=== PATIENT | male | born 1955 | race Caucasian/White ===

== ENCOUNTER 2019-11-05 11:03 | Day surgery (SDC) | payer OTHER, SELFPAY ==
[2019-11-04 14:44] VITALS: BMI 34.4
[2019-11-05] VITALS (8 sets, daily range): BP systolic 115–135; BP diastolic 69–89; PULSE 62–72; RESP 18–23; TEMP 36.2–36.6; O2SAT 94–100
--- NOTE | 2019-11-05 11:37 | ECG_ITS ---
Measurements Intervals [place] Rate: 49 P: 38 ME: 177 QRS: -17 QRSD: 95 T: 3 QT: 462 QTc: 421 SINUS BRADYCARDIA No previous ECG available for comparison Electronically Signed On 11-05-2019 19:58:52 CATERPILLAR MECHANIC by Blas Lopez M.D. [id number]
[2019-11-05 11:50] LABS: Glucose Point of Care 127 mg/dL (70-110)
--- NOTE | 2019-11-05 12:03 | ANES.PREANE2 ---
Pre-Anesthetic Assessment Pre-Anesthetic Assessment: Height/Weight: Height 1.83 m Weight 115.212 kg Temp Pulse Resp BP Pulse Ox 97.3 F L 64 18 115/72 94 11/05/19 11:29 11/05/19 11:29 11/05/19 11:29 11/05/19 11:29 11/05/19 11:29 Preop Diagnosis: Left shoulder impingement with DJD AC joint Proposed Procedure: Operation Date: 11/05/19 13:10 Proposed Procedures p Distal Clavicle Resection 30741 M19.012 M75.42(Left) - Florecita Cruz MD s Poss Rotator Cuff Repair(Left) - Florecita Cruz MD Was Beta Niranjan taken within 24 hours: Yes Last intake: Intake Last Liquid Date 11/04/19 Last Liquid Time 21:30 Last Solid Date 11/04/19 Last Solid Time 20:30 Last Intake: 08:00 Social: Social History: Tobacco Packs per day: 1 Pack years: 22 Comment: quit Exam: Pre-Anes Outpt Exam: alert, oriented x 3, clear to auscultation bilaterally and regular rate & rhythm Airway: Submandibular: WNL Cervical ROM: WNL MP: 1 CV/HEM: CV/HEM: Angina (Stable) and CAD Comments: ' CABG Haseeb stress test 06/13 small SC Haseeb last visit 08/13 started isosorbide GI: GI: GERD Metabolic: Metabolic: DM Comments: rx'd x 2y, normally 145-155 Musc/skel: Musc/skel: Lower Back Pain Comments: left radiculopathy Neuropsych: Neuropsych: MELARA Anesthetic Plan: ASA status: 3 Data Anesthesia Other Labs: Laboratory Results - last 48 hr 11/05/19 11:47 POC Glucose 127 Cardiac Studies: No Data to Display
[2019-11-05] MEDS: sodium chloride 0.9% 1,000 ML 30 ML IV (12:04)
[2019-11-05] MEDS: midazolam 1 mg/mL INJ 5 ML 5 MG IVP (12:15)
[2019-11-05] MEDS: fentaNYL 50 mcg/mL INJ 2mL 100 MCG IVP (12:25)
--- NOTE | 2019-11-05 12:27 | ANES.PROC ---
Anesthesia Procedures Procedure/Date: 11/05/19 Left innerscalene block Procedure Narrative: R&B's of left innerscalene block disc'd for postop pain relief following left shoulder sx. Verbal and written consent obtained. Versed 2+1+.5mg, Fentanyl 50ug. US utilized to identify left innerscalene groove, NATALIO. Nerve stimulator at 0..8mAMPS. 40cc Ropvicaine 0.5% + Lido 2% withepi 3:1 mixture in 5cc increments without problems/complications. Nerve Block ^: Nerve Block 1: Main Anesthesia: general anesthesia Time Out Performed: Yes Consent: requested by attending/covering physician, from patient, risks and benefits reviewed and patient agrees to proceed Nerve block location: interscalene Anesthesia monitors applied: pulse oximetry and oxygen Anesthetic Used: lidocaine 2% and ropivicaine 0.5% Amount of anesthesia used (mL): 40 Ultrasound used to: visualize and ID interscalene groove Nerve Stimulator Used?: Yes Interscalene/Femoral BLK: 2 stimuplex 22 g needle used for position and inplane approach Injection: neg aspiration of heme Patient Tolerated Procedure: well and no complications Complications: none
--- NOTE | 2019-11-05 12:58 | P.HPUD_ITS ---
H&P update H&P Update: DATE OF SURGERY/PROCEDURE: 11/05/19 DATE H&P PERFORMED: 12/12 H&P UPDATE INFORMATION: No changes to prior documentation and H[place] is [place] [facility] [place] date indicated PREOP DIAGNOSIS: Left shoulder impingement with DJD AC joint PRIMARY INDICATION FOR PROCEDURE: See diagnosis PLANNED PROCEDURE: Operation Date: 11/05/19 13:10 Proposed Procedures p Distal Clavicle Resection 79160 M19.012 M75.42(Left) - Florecita Cruz MD s Poss Rotator Cuff Repair(Left) - Florecita Cruz MD Full H&P Medications/Allergies: Current Medications: Current Medications Generic Name Dose Route Start Last Admin Trade Name Freq PRN Reason Stop Dose Admin Sodium Chloride 1,000 mls @ 30 ml s/hr 11/05/19 11:15 11/05/19 12:04 Sodium Chloride 0.9% IV 11/06/19 11:14 30 mls/hr .Q24H ONIEL Administration
[2019-11-05 13:51] LABS: Anion Gap 17.5 (5-19); Blood Urea Nitrogen 13 mg/dL (8-23); Carbon Dioxide 26 mmol/L (22-29); Chloride 103 mmol/L (98-107); Glomerular Filtration Rate 97.6 mL/min (90-130); Glucose 142 mg/dL (65-115); Osmolality Calculated 293 mOsm/kg (285-295); Potassium 4.5 mmol/L (3.5-5.1); Sodium 142 mmol/L (136-145)
[2019-11-05] MEDS: ceFAZolin 1,000 mg SDV 1000 MG IRRIGATION (14:18)
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
--- NOTE | 2019-11-05 15:40 | P.OP_ITS ---
Operative Report Date of procedure: November 05, 2019 Pre-op Diagnosis: Left shoulder impingement with DJD AC joint with possible rotator cuff tear Post-op diagnosis: same (Without rotator cuff tear) Procedure Done: Open acromioplasty and distal clavicle resection left shoulder Specimens removed/disposition: Bone, disposed of Pathology: none sent Surgeon: Florecita Cruz Linotypist: [facility] OR technicians Anesthesia: General (Intubated with interscalene block supplemental) Estimated blood loss (mL): 50 IV fluids (mL): 1,000 Urine output: 0 mL, no Bonilla Complications: None Findings: Severe impingement and degenerative osteoarthritis of the acromioclavicular joint with no evidence of rotator cuff tear, but with quite thickened bursa. Condition: stable Disposition: same day Brief History: This 64-year-old gentleman presented with complaints of left shoulder pain. MRI findings were consistent with impingement as well as acromioclavicular joint degenerative osteoarthritis. There was also a question of a partial rotator cuff tear in the subscapularis tendon. The patient was nonresponsive to conservative measures, and he wished to proceed with surgical intervention. Risks and complications were discussed with him. The patient was consented for surgery and consents were signed preoperatively. Procedure: The patient was brought to the operating theater and underwent general intubated anesthesia with supplemental interscalene block. The patient was placed in a beachchair position and subsequently the left upper extremity was prepped and draped in the usual fashion utilizing DuraPrep. The arm was draped free. A surgical pause was performed prior to commencement of the surgical procedure. At the time of the surgical pause, we confirmed the site and side of surgery as well as administration of appropriate preoperative antibiotics Ancef 2 g. MRI was also reviewed at that time. Following the surgical pause, an incision was made at approximately the level of the acromioclavicular joint extending across the anterolateral corner of the acromion and distally as necessary. Care was taken to avoid injury to the axillary nerve by limiting the distal extent of the incision. Dissection continued through skin and soft tissues using a scalpel. Hemostasis was obtained using electrocautery. Soft tissues were elevated off the acromion. An acromioplasty was then accomplished using a combination of a saw and a power rasp. With this, we were able to remove compression caused by the acromion. The rotator cuff was then evaluated to look for tears. In particular, the subscapularis and supraspinatus were evaluated. MRI was consistent with possible partial subscapularis tear, but none was seen. There was significant thickening of the bursa and a bursectomy was accomplished. After bursectomy, the shoulder was placed through further range of motion to assure there was no evidence of rotator cuff tear. The acromioclavicular joint was exposed. A saw was then used to resect the distal clavicle without difficulty. The undersurface of the clavicle was palpated and was slightly further debrided. A power rasp was used to further smooth the area. When this was felt to be adequately resected, the wound was irrigated. Attention was then directed to closure. The wound was irrigated and closure was accomplished with 0 Vicryl in the capsular tissues overlying the acromioclavicular joint area as well as over the acromion and down into the deltoid muscle. 3-0 Monocryl was used to close the subcutaneous tissues followed by 4-0 Monocryl subcuticular closure. This was followed by Exofin, Steri-Strips, Telfa, and Tegaderm. The patient was placed in a sling and was returned to the recovery room in satisfactory condition. The patient will be discharged to home to follow-up with me in the office. There were no complications and no specimens.
--- NOTE | 2019-11-05 15:41 | SUR.PHASEI ---
1537 PATIENT TO OPS. A/OX3. RR EVEN AND UNLABORED. TOLERATING ICE CHIPS. DRESSING INTACT TO LEFT SHOULDER, WITH SLING. RADIAL PULSE PRESENT, CAP REFILL LESS THAN 3 SECONDS. PATIENT DENIES PAIN.
== END 2019-11-05 16:15 | disposition home or self-care (01) ==
PROVIDERS: Anesthesiology; Family Provider Family Medicine; PCP Family Medicine; Visit Provider Specialist
PROC: (CPT 23120; principal; 2019-11-05 13:10)
DX: M75.42 Impingement syndrome of left shoulder (principal); M19.012 Primary osteoarthritis, left shoulder; Z79.82 Long term (current) use of aspirin; Z79.84 Long term (current) use of oral hypoglycemic drugs; F17.210 Nicotine dependence, cigarettes, uncomplicated; Z95.1 Presence of aortocoronary bypass graft; I25.10 Atherosclerotic heart disease of native coronary artery without angina pectoris; I25.2 Old myocardial infarction; K21.9 Gastro-esophageal reflux disease without esophagitis
CPT/HCPCS: 23125; 23130; 12345; 36415; 36416; 80048; 82962; 93005; 96374; 96375; J0690; J2001; J2250; J2704; J2795; J3010; J3490; J7030

== ENCOUNTER → 2019-11-20 11:36 | Outpatient (BNVA) | payer OTHER, SELFPAY | PROVIDERS: Family Provider Family Medicine; PCP Family Medicine; Visit Provider Specialist | DX: Z98.890 Other specified postprocedural states (principal) | CPT/HCPCS: 73030 ==

== ENCOUNTER 2020-01-21 08:15 | Outpatient (CLI) | payer OTHER, SELFPAY ==
--- NOTE | 2020-01-21 08:33 | XR_ITS ---
WS: [id number] SHOULDER RIGHT TECHNIQUE: 3 views of the right shoulder CLINICAL INFORMATION: PAIN IN RIGHT SHOULDER COMPARISON: None. FINDINGS: Normal acromioclavicular joint. Normal glenohumeral joint. Acromion is normal in appearance. Normal g lenoid. No evidence of acute fracture dislocation. XR/XR shoulder RT min 2V* [id number] IMPRESSION: Normal right shoulder.
== END 2020-01-21 08:16 | disposition home or self-care (01) ==
LOC: RADWPI 08:18
PROVIDERS: Family Provider Family Medicine; PCP Nurse Practitioner Family; Visit Provider Nurse Practitioner Family
DX: M25.511 Pain in right shoulder (principal)
CPT/HCPCS: 73030

== ENCOUNTER 2020-02-03 20:00 | Outpatient (CLI) | payer OTHER, SELFPAY | END 2020-02-03 20:01 | disposition home or self-care (01) | LOC: SLEEP 02-04 12:06 | PROVIDERS: Family Provider Family Medicine; PCP Nurse Practitioner Family; Visit Provider Nurse Practitioner Family | DX: G47.33 Obstructive sleep apnea (adult) (pediatric) (principal) | CPT/HCPCS: 95810; 95811 ==

== ENCOUNTER → 2022-06-02 08:39 | Outpatient (BNVA) | payer MEDICARE, SELFPAY | PROVIDERS: Family Provider Family Medicine; PCP Family Medicine; Visit Provider Family Medicine | DX: E11.69 Type 2 diabetes mellitus with other specified complication (principal); E66.9 Obesity, unspecified; Z12.5 Encounter for screening for malignant neoplasm of prostate; Z80.42 Family history of malignant neoplasm of prostate; Z87.891 Personal history of nicotine dependence | CPT/HCPCS: 80053; 80061; 83036; G0103 ==

== ENCOUNTER 2022-09-29 08:25 | Outpatient (CLI) | payer MEDICARE, SELFPAY ==
--- NOTE | 2022-09-29 08:45 | CT_ITS ---
WS: [id number] LDCT LUNG CANCER SCREENING TECHNIQUE: Noncontrast CT of the chest with coronal and sagittal reformatted images. CLINICAL INFORMATION: lung cancer screening COMPARISON: None. DLP: 83.59 mGy.cm DIvol: Mean CTDIvol: 1.60 (mGy) All CT scans at [facility] use at least one of these dose optimization techniques: automat ed exposure control; mA and/or kV adjustment per patient size (includes targeted exams where dose is matched to clinical indication); or iterative reconstruction. FINDINGS: Numerous bilateral round and ovoid solid noncalcified nodules more prominent in the upper l obes and subpleural in location. Additional nodules in the lung bases. The largest nodules measure up to 6 mm in the RIGHT upper lobe. Findings are nonspecific but metastatic disease is not excluded. No mediastinal or hilar lymphadenopathy. Prominent RIGHT axillary lymph node measuring 9.3 mm. A few prominent LEFT axillary lymph nodes measu ring up to 11 mm. Sternotomy. CABG. Normal caliber thoracic aorta. Coronary calcification.Normal GE junction. Adrenal g lands are normal. No mediastinal or hilar lymphadenopathy. Low-attenuation lesion in the hepatic dome likely hepatic cyst measuring 9 mm but too small to definitively characterize. Chronic LEFT rib frac ture with callus formation. CT/CT lung screening 36564 IMPRESSION: Numerous bilateral solid noncalcified pulmonary nodules bilaterally more prominent in the upper lobes. Largest nodules measure up to 6.3 mm in the RIGHT upper lobe along the fissure. Findings are nonspecific but metastatic di sease is not excluded. Recommend further evaluation with contrast-enhanced CT chest abdomen pelvis and correlate with history of malignancy. A few prominent axillary lymph nodes chun suring 9 to 11 mm. Nodules are probably too small for diagnostic evaluation with PET/CT. LUNG-RADS: 4B-Suspicious FOLLOW UP: See Report
== END 2022-09-29 08:26 | disposition home or self-care (01) ==
LOC: RAD 08:28
PROVIDERS: Family Provider Family Medicine; PCP Family Medicine; Visit Provider Family Medicine
DX: Z12.2 Encounter for screening for malignant neoplasm of respiratory organs (principal); Z87.891 Personal history of nicotine dependence
CPT/HCPCS: 71271

== ENCOUNTER → 2022-10-06 10:03 | Outpatient (BNVA) | payer MEDICARE, SELFPAY | PROVIDERS: Family Provider Family Medicine; PCP Family Medicine; Visit Provider Family Medicine | DX: R91.8 Other nonspecific abnormal finding of lung field (principal) | CPT/HCPCS: 80053; 85025 ==

== ENCOUNTER 2022-10-27 13:00 | Inpatient (IN) | payer MEDICARE, SELFPAY ==
[2022-10-27] VITALS (16 sets, daily range): BP systolic 102–157; BP diastolic 60–108; PULSE 66–106; RESP 11–19; TEMP 36.4–36.8; O2SAT 94–99; BMI 33.9
--- NOTE | 2022-10-27 13:16 | ECG_ITS ---
[facility] Test Date: 2022-10-27 Pat Name: Johnny Garcia Department: Room: Gender: Male Golf Sales Manager: : 1955 Requested By: Mateo Lopez Order Number: [id number] Narciso MD: Mali Quintana M.D. Measurements Intervals [place] Rate: 67 P: 30 PA: 169 QRS: -36 QRSD: 105 T: 49 QT: 398 QTc: 423 Interpretive Statements SINUS RHYTHM LEFT AXIS DEVIATION [QRS AXIS < -30] PATTERN CONSISTENT WITH PULMONARY DISEASE Compared to ECG 11/05/2019 11:56:27 Left-axis deviation now present Sinus bradycardia no longer present Electronically Signed On 10-27-2022 21:02:44 STATE FARM AGENT by Mali Quintana M.D. [email or web address] [email or web address].[email or web address]/store/NU/[id number] f
--- NOTE | 2022-10-27 14:12 | XR_ITS ---
WS: [id number] Portable AP upright chest, 10/27/2022 Clinical Data: chest pain Comparison: None. Findings: No nodules, masses or effusions are seen. The heart is normal. The pulmonary vascularity is not increased. No pneumonia or pneumothorax is seen. Midline sternotomy sutures are present. There a re monitor leads on the chest wall. XR/XR chest 1V portable [id number] Impression: Atherosclerosis.
--- NOTE | 2022-10-27 14:14 | ED_ITS ---
HPI - Chest Pain General: Chief Complaint: Chest Pain Stated Complaint: chest Pain, N/V, Time Seen by Provider: 10/27/22 14:12 Source: patient Mode of arrival: ambulatory History of Present Illness: 67-year-old male presents emergency room with complaint of a sensation of bad heartburn in his chest. He vomited once the pain seemed to worsen and radiated to his back no shortness of breath with. His symptoms of all past he is asymptomatic now. Patient has a known history of coronary artery disease and previously had coronary artery bypass graft. He subsequently had stress test that was concerning he states he did an angiogram they told him that it was unremarkable. Presents today after an episode of chest pain he is pain-free at this time. Denies any recent fever sweats or chills. MD complaint: chest pain Pertinent past history: coronary artery disease Onset (ago): hour(s) Timing of current episode: episodic Prior episodes: Yes Onset: during rest Pain location: substernal and left chest Pain radiation: back Severity: moderate Quality: tightness and aching Relieving factors: nothing Exacerbating factors: nothing Associated symptoms: Reports diaphoresis and dyspnea; Deny abdominal pain, fever(s), leg edema, nausea, palpitations, sense of impending doom, syncope or vomiting Treatment prior to arrival: none Review of Systems Const: Reports: diaphoresis; Denies: fever(s) or chills ENMT: Denies: throat pain, ear or mastoid pain, nasal discharge or nasal congestion Card: Reports: chest pain; Denies: palpitations, irregular heart rhythm, edema, swelling of feet/ankles or syncope Resp: Reports: dyspnea GI: Denies: abdominal pain, nausea or vomiting : Denies: flank pain, dysuria, urinary frequency or urinary urgency Skin/Breast: Denies: rash or pruritus PFSH ED PFSH: Medical History Arthritis of left acromioclavicular joint CAD (coronary artery disease) of bypass graft Depression, major, in partial remission History of nonmelanoma skin cancer Hyperlipidemia Hypertension Impingement syndrome of left shoulder region [place] treated with BiPAP Restless leg syndrome Tendonitis of left rotator cuff Thoracic aneurysm without mention of rupture found on echo by java technical manager - dr. cassidy Type 2 diabetes mellitus Surgical History History of shoulder surgery left Hx of coronary artery bypass graft CAABG x 3 2015 Status post repair of hydrocele Family History Mother CAD (coronary artery disease) Diabetes Father Cancer prostate & lung CAD (coronary artery disease) Social History Smoking and tobacco status: former smoker Quit status (tobacco): has quit using tobacco Year quit tobacco: 2015 Former quit date comment: 30 pack year Household members: spouse Marital status: Physical Exam Const: COMMON NORMALS: no acute distress GENERAL APPEARANCE: cooperative and comfortable ORIENTATION/CONSCIOUSNESS: Yes awake, Yes oriented to person, Yes oriented to place and Yes oriented to time HENMT: COMMON NORMALS: normocephalic, atraumatic and hearing grossly normal bilaterally HEAD & SCALP: normocephalic and atraumatic Eye: COMMON NORMALS: Equal, round and reactive pupils present, EOMs intact bilaterally, conjunctivae normal and no scleral icterus CONJUNCTIVA: Yes conjunctivae normal PUPIL: Yes Equal, round and reactive pupils present Neck/C-Spine: COMMON NORMALS: full ROM, no lymphadenopathy, supple and no JVD Lymph: LYMPHATIC: no lymphadenopathy noted and no lymphedema noted Resp: COMMON NORMALS: normal respiratory effort, No retractions, No use of accessory muscles and clear to auscultation bilaterally AUSCULTATION: clear to auscultation bilaterally Cardio: COMMON NORMALS: no JVD, regular rate, regular rhythm and No murmurs present (Cardio) RATE: regular rate RHYTHM: regular rhythm GI: COMMON NORMALS: Soft to palpation and No hepatosplenomegaly present AUSCULTATION: Yes normoactive bowel sounds PALPATION: Yes Soft to palpation, No Tenderness to palpation present (GI), No Guarding due to palpation present (GI) and Yes No hepatosplenomegaly present Extremity: COMMON NORMALS: normal to inspection, capillary refill normal, no clubbing, cyanosis or edema, no calf tenderness and no pedal edema Neuro: SENSORIUM/ORIENTATION: Yes oriented to person, Yes oriented to place and Yes oriented to time Skin: COMMON NORMALS: no rashes or lesions noted GENERAL SKIN EXAM: no rashes or lesions noted Course Vital Signs: Vital signs: Vital Signs Temperature 97.5 F L 10/27/22 13:08 Pulse Rate 68 10/27/22 15:00 Respiratory Rate 13 10/27/22 15:00 Blood Pressure 135/81 10/27/22 15:00 Pulse Oximetry 98 10/27/22 15:00 Oxygen Delivery Me thod 10/27/22 13:08 MDM - Chest Pain Medical Decision Making Chest pain concerning in his description EKG does not show any acute ST changes not currently having any chest pain while we are waiting on his lab work he had a nonsustained run of V. tach about 5 seconds in length. Self terminating and asymptomatic. Discussed Dr. Montgomery on-call for cardiology will admit started on amiodarone in the emergency room 150 loading and then 0.[address]. [address] Akhtar orders written patient will be admitted to the ICU and Dr. Montgomery consulted. We will also get old records from [facility] previously had angiography done. Patient has history of previous thoracic aneurysm he is not having any pain at this time we will do a scan of his chest to evaluate this. Medical Records I reviewed the patient's medical records. Lab Data I reviewed the patient's lab results. 10/27/22 14:30 10/27/22 14:30 Radiology Impressions Chest X-Ray 10/27/22 14:12 Impression: Atherosclerosis. Laboratory Results WBC 6.8 10^3/uL (4.0-10.0) 10/27/22 14:30 RBC 4.58 10^6/uL (4.1-5.3) 10/27/22 14:30 Hgb 13.8 g/dL (11.7-16.6) 10/27/22 14:30 Hct 42.7 % (42.0-52.0) 10/27/22 14:30 MCV 93.2 fl (80-94) 10/27/22 14:30 MCH 30.1 pg (28.0-34.0) 10/27/22 14:30 MCHC 32.3 g/dL (30.0-36.0) 10/27/22 14:30 RDW 13.2 % (12.1-15.1) 10/27/22 14:30 Plt Count 202 10^3/cmm (130-400) 10/27/22 14:30 MPV 9.2 fL (7.4-10.4) 10/27/22 14:30 Neut % (Auto) 78.9 % 10/27/22 14:30 Lymph % (Auto) 13.7 % 10/27/22 14:30 [place] % (Auto) 6.1 % 10/27/22 14:30 Eos % (Auto) 0.6 % 10/27/22 14:30 Baso % (Auto) 0.3 % 10/27/22 14:30 Neut # (Auto) 5.39 10^3/uL (1.8-7.7) 10/27/22 14:30 Lymph # (Auto) 0.9 10^3/uL (0.8-4.8) 10/27/22 14:30 [place] # (Auto) 0.4 10^3/uL (0.2-0.9) 10/27/22 14:30 Eos # (Auto) 0.0 10^3/uL (0.0-0.8) 10/27/22 14:30 Baso # (Auto) 0.0 10^3/uL (0.0-0.1) 10/27/22 14:30 Nucleated RBC % (auto) 0 % 10/27/22 14:30 Nucleated RBCs # 0.0 /100WBC 10/27/22 14:30 Sodium 136 mmol/L (136-145) 10/27/22 14:30 Potassium 4.2 mmol/L (3.5-5.1) 10/27/22 14:30 Chloride 99 mmol/L (98-107) 10/27/22 14:30 Carbon Dioxide 24 mmol/L (22-29) 10/27/22 14:30 Anion Gap 17.2 (5-19) 10/27/22 14:30 BUN 9 mg/dL (8-23) 10/27/22 14:30 Creatinine 0.7 mg/dL (0.7-1.2) 10/27/22 14:30 GFR Calculation 112.8 mL/min (90-130) 10/27/22 14:30 Glucose 120 mg/dL (65-115) H 10/27/22 14:30 POC Glucose 97 mg/dL (70-110) 10/27/22 16:01 Calculated Osmolality 282 mOsm/kg (285-295) L 10/27/22 14:30 Calcium 9.2 mg/dL (8.5-10.5) 10/27/22 14:30 Total Bilirubin 0.8 mg/dL (0.15-1.2) 10/27/22 14:30 AST 28 U/L (0-40) 10/27/22 14:30 ALT 36 U/L (0-41) 10/27/22 14:30 Alkaline Phosphatase 74 U/L (40-130) 10/27/22 14:30 Troponin T Baseline 6 ng/L (0-15) 10/27/22 14:30 Troponin T 120 Minute 6.00 ng/L (0-15) 10/27/22 16:17 Delta Troponin T 0 ABS# (0-10) 10/27/22 16:17 Total Protein 7.3 g/dL (6.6-8.7) 10/27/22 14:30 Albumin 4.8 g/dL (3.5-5.2) 10/27/22 14:30 Globulin 2.5 g/dL (1.3-4.6) 10/27/22 14:30 Discharge Plan Discharge Patient Disposition: Admitted As Inpatient Clinical Impression: Ventricular tachycardia, Thoracic aneurysm without mention of rupture, CAD (coronary artery disease) of bypass graft, Type 2 diabetes mellitus, Chest pain Condition: Stable Coding Level of Care Code ED Brasswind Instrument Repairer for Chg Fwd Exam Comprehensive
[2022-10-27] MEDS: aspirin 81 mg Chew Tablet 324 MG PO (14:21)
--- NOTE | 2022-10-27 14:31 | ECG_ITS ---
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 Measurements Intervals [place] Rate: 69 P: 5 DC: 155 QRS: -31 QRSD: 103 T: -12 QT: 394 QTc: 425 Interpretive Statements SINUS RHYTHM LEFT AXIS DEVIATION [QRS AXIS < -30] MODERATE T-WAVE ABNORMALITY, CONSIDER ANTERIOR ISCHEMIA [-0.1+ mV T-WAVE IN V3/V4] Compared to ECG 10/27/2022 13:13:45 T-wave abnormality now present Possible ischemia now present Electronically Signed On 10-27-2022 21:00:56 FOUNDRY TECHNICIAN by Mali Quintana M.D. [id number]
[2022-10-27 14:39] LABS: Basophils % 0.3 %; Eosinophils % 0.6 %; Hematocrit 42.7 % (42.0-52.0); Hemoglobin 13.8 g/dL (11.7-16.6); Lymphocytes # 0.9 10^3/uL (0.8-4.8); Lymphocytes % 13.7 %; Mean Corpuscular HGB Conc 32.3 g/dL (30.0-36.0); Mean Corpuscular Hemoglobin 30.1 pg (28.0-34.0); Mean Corpuscular Volume 93.2 fl (80-94); Mean Platelet Volume 9.2 fL (7.4-10.4); Monocytes # 0.4 10^3/uL (0.2-0.9); Monocytes % 6.1 %; Neutrophils # 5.39 10^3/uL (1.8-7.7); Neutrophils % 78.9 %; Nucleated Red Blood Cells % 0 %; Platelet Count 202 10^3/cmm (130-400); Red Blood Count 4.58 10^6/uL (4.1-5.3); Red Cell Distribution Width 13.2 % (12.1-15.1); White Blood Count 6.8 10^3/uL (4.0-10.0)
[2022-10-27 14:55] LABS: Troponin(5th) Baseline 6 ng/L (0-15)
[2022-10-27 14:57] LABS: Alanine Aminotransferase 36 U/L (0-41); Albumin Level 4.8 g/dL (3.5-5.2); Alkaline Phosphatase 74 U/L (40-130); Anion Gap 17.2 (5-19); Aspartate Amino Transferase 28 U/L (0-40); Blood Urea Nitrogen 9 mg/dL (8-23); Calcium 9.2 mg/dL (8.5-10.5); Carbon Dioxide 24 mmol/L (22-29); Chloride 99 mmol/L (98-107); Globulin 2.5 g/dL (1.3-4.6); Glomerular Filtration Rate 112.8 mL/min (90-130); Glucose 120 mg/dL (65-115); Osmolality Calculated 282 mOsm/kg (285-295); Potassium 4.2 mmol/L (3.5-5.1); Sodium 136 mmol/L (136-145); Total Bilirubin 0.8 mg/dL (0.15-1.2); Total Protein 7.3 g/dL (6.6-8.7)
[2022-10-27 16:05] LABS: Glucose Point of Care 97 mg/dL (70-110)
--- NOTE | 2022-10-27 16:09 | ECG_ITS ---
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 Measurements Intervals [place] Rate: 71 P: 7 WI: 148 QRS: -27 QRSD: 105 T: 53 QT: 400 QTc: 436 Interpretive Statements SINUS RHYTHM BORDERLINE LEFT AXIS DEVIATION [QRS AXIS < -20] MODERATE T-WAVE ABNORMALITY, CONSIDER ANTERIOR ISCHEMIA [-0.1+ mV T-WAVE IN V3/V4] Compared to ECG 10/27/2022 14:31:17 No significant changes Electronically Signed On 10-27-2022 21:07:39 SMOKE JUMPER SUPERVISOR by Mali Quintana M.D. [email or web address]/store/OM/[id number]
--- NOTE | 2022-10-27 16:23 | PC.NURSE ---
DR. ACOSTA GAVE VERBAL ORDER FOR 150MG LOADING DOSE OF AMIODARONE OVER 10MINUTES BY IV. VERBAL ORDER READ REPEATED BACK AND VERIFIED.
--- NOTE | 2022-10-27 16:27 | PC.NURSE ---
AT 1554 PT HAD WHAT APPEARED TO BE A 8 SECOND RUN OF VTACH. UPON ARRIVAL TO ROOM PT IS DENIES EXPERIENCING SYMPTOMS. SKIN WARM AND DRY.
[2022-10-27 17:03] LABS: Troponin 5 2HR Delta 0 ABS# (0-10)
--- NOTE | 2022-10-27 17:15 | CTR_ITS ---
PROCEDURE INFORMATION: Exam: CTA Chest With Contrast Exam date and time: 10/27/2022 8:23 PM Age: 67 years old Clinical indication: Left-sided; Prior surgery; Surgery type: Cabg; Patient HX: C/O left sided chest pain with n/v. History of thoracic aneurysm; Additional info: Cet pain - HX thoracic anuerysm TECHNIQUE: Imaging protocol: Computed tomographic angiography of the chest with contrast. 3D rendering (Not supervised by radiologist): MIP and/or 3D reconstructed images were created by the technologist. Radiation optimization: All CT scans at this facility use at least one of these dose optimization techniques: automated exposure control; mA and/or kV adjustment per patient size (includes targeted exams where dose is matched to clinical indication); or iterative reconstruction. Contrast material: OMNI 350; Contrast volume: 95 ml; Contrast route: INTRAVENOUS (IV); Other protocol: This patient has received [address] and 0 known cardiac nuclear medicine studies in the 12 months prior to the current study. COMPARISON: CT lung screening [id number] 09/29/2022 8:38 AM RADIATION DOSE METRICS: Total DLP (mGy-cm): 1049.34 FINDINGS: Pulmonary arteries: Normal. No pulmonary emboli. Aorta: Unremarkable. No aortic aneurysm. No aortic dissection. Lungs: Multiple unchanged subcentimeter nodules are again seen scattered throughout both lungs, the largest measuring 6 mm in the right upper lobe. No new nodule seen. No consolidation. Pleural spaces: Unremarkable. No pneumothorax. No pleural effusion. Heart: Normal heart size. Coronary atherosclerotic calcifications seen. No pericardial effusion. Lymph nodes: Unremarkable. No enlarged lymph nodes. Liver: The liver is diffusely decreased in density, compatible with hepatic steatosis. There are 2 unchanged subcentimeter foci of decreased attenuation in the liver, which are too small to characterize. Bones/joints: Median sternotomy changes seen. Degenerative changes of the spine seen. Old healed fracture deformities noted in the left ribcage. Soft tissues: Unremarkable. CT/CT angio chest [id number] IMPRESSION: 1. No pulmonary embolus or other acute pathology in the chest. 2. Unchanged multiple bilateral pulmonary nodules, concerning for metastatic disease. 3. Incompletely characterize subcentimeter hepatic lesions. Further evaluation with contrast enhanced abdomen MRI in a non emergent basis should be considered.
--- NOTE | 2022-10-27 17:28 | USCV_ITS ---
ArchanaJohnny barger Age: 67 Gender: M : 1955 Exam Date: 10/27/2022 17:44 Ordering Phys: Brittny Akhtar MD Technologist: Mir Haynes [place] [facility] [place]: hx of cabg chest pain BP: 131 / 83 HR: 67 Rhythm: Other Technical Quality: Adequate MEASUREMENTS (Male / Female) Normal Values 2D ECHO LV Diastolic Diameter PLAX 5.6 cm 4.2 - 5.9 / 3.9 - 5.3 cm LV Systolic Diameter PLAX 3.5 cm IVS Diastolic Thickness 1.3 cm 0.6 - 1.0 / 0.6 - 0.9 cm IVS Systolic Thickness 1.5 cm LVPW Diastolic Thickness 1.5 cm 0.6 - 1.0 / 0.6 - 0.9 cm LVPW Systolic Thickness 1.4 cm LVOT Diameter 2.1 cm LV Ejection Fraction 2D Teich 67.1 % LV Ejection Fraction MOD 2C 65.8 % LV Ejection Fraction 2C AL 67.5 % LA Diameter 4.2 cm IVC Diameter 2.2 cm M-MODE Aortic Annulus Diameter 4.1 cm LA Ao Ratio MM 1.1 MV E Point Septal Separation 0.6 cm DOPPLER AV Peak Velocity 182.0 cm/s LVOT Peak Velocity 78.0 cm/s AV Area Cont Eq vti 1.6 cm squared AV Area Cont Eq pk 1.5 cm squared MV Area PHT 5.0 cm squared Mitral E to A Ratio 0.9 MV E' Velocity 42.5 cm/s Mitral E to MV E' Ratio 8.2 Mitral E to LV E' Lateral Ratio 6.9 Mitral E to LV E' Septal Ratio 10.0 TR Peak Velocity 354.7 cm/s TR Peak Gradient 50.3 mmHg TV Peak E Velocity 141.0 cm/s Right Atrial Pressure 3.0 mmHg Pulmonary Artery Systolic Pressu 53.3 mmHg FINDINGS Left Ventricle Left ventricle is mildly dilated. LV systolic function is borderline normal with EF 50-55%. No regional wall motion abnormalities are seen. Grade 1 diastolic dysfunction Right Ventricle Normal in size and function Right Atrium Normal in size Left Atrium Normal in size Mitral Valve Structurally normal mitral valve. Trace mitral regurgitation. Aortic Valve Aortic valve is thickened and calcified. No significant stenosis or regurgitation is seen. Tricuspid Valve Trace tricuspid regurgitation. Insufficient TR jet to calculate RVSP. Pulmonic Valve Not well visualized Pericardium Grossly normal Aorta Normal in size IVC Appears to be normal CONCLUSIONS Left ventricle is mildly dilated. LV systolic function is borderline normal with a EF of 50 to 55% Grade 1 diastolic dysfunction Trace mitral regurgitation Aortic valve is thickened and calcified Trace tricuspid regurgitation Compared to prior echocardiogram from 2018, no significant changes are seen Gabriel Mlilard MD (Electronically Signed) Final Date: 28 October 2022 12:15 S
--- NOTE | 2022-10-27 18:07 | P.CONIM_ITS ---
Providers/Reason For Consult Consulting Physician/Specialty*: Gabriel Millard MD/ Cardiology Reason for Consult*: Chest pain/ Non sustained ventricular tachcardia Requesting Physician: Dr Desai Attending Physician: Brittny Akhtar MD Primary Care Provider: Danni Gifford MD History of Present Illness History of Present Illness Johnny Garcia is a 67 year old male with past medical history of hypertension, coronary artery disease with prior CABG, who presented to hospital with substernal burning chest discomfort. He had radiation to the back. He also had nausea and had a vomitting episode. Discomfort was severe. In the emergency room he had episodes of nonsustained ventricular tachycardia. He was put on amiodarone drip. His troponins have not trended up. EKG demonstrated dynamic T wave changes in anterior leads concerning for ischemia. Review of Systems Const: Denies: fever(s) Eyes: Denies: change in vision ENMT: Denies: throat pain Card: Reports: chest pain Resp: Denies: dyspnea GI: Reports: nausea : Denies: flank pain Musc: Denies: neck pain Skin/Breast: Denies: rash Neuro: Denies: headache(s) Psych: Reports: anxiety Endo: Denies: polyuria Dago/Lymph: Denies: easy bruising All/Imm: Denies: urticaria Medications/Allergies Home Medications Medication Instructions Recorded Confirmed Last Taken Type aspirin 81 mg tablet,delayed 81 mg PO DAILY 10/28/19 10/27/22 10/26/22 History release (Adult Low Dose Aspirin) nitroglycerin 0.4 mg sublingual 0.4 mg sublingual Q5M PRN Chest 10/28/19 10/27/22 Unknown History tablet Pain omega-3 fatty acids 1,000 mg 1,000 mg PO DAILY 10/28/19 10/27/22 10/26/22 History capsule (Fish Oil Concentrate) oxygen-air delivery systems ##1 10/28/19 10/27/22 Unknown History atorvastatin 80 mg tablet 80 mg PO DAILY 06/02/22 10/27/22 10/26/22 History isosorbide mononitrate 120 mg 120 mg PO BID 06/02/22 10/27/22 10/27/22 History tablet,extended release 24 hr lisinopril 2.5 mg tablet 10 mg PO DAILY 06/02/22 10/27/22 10/27/22 History semaglutide 0.25 mg or 0.5 mg (2 0.25 mg SUBCUT Q7D 06/02/22 10/27/22 10/20/22 History mg/1.5 mL) subcutaneous pen injector (Ozempic) gabapentin 300 mg capsule 300 mg PO DAILY #90 caps 09/28/22 10/27/22 10/26/22 Rx sertraline 100 mg tablet 150 mg PO DAILY 90 days #90 tabs 10/21/22 10/27/22 10/27/22 Rx ascorbic acid (vitamin C) 1,000 mg 1,000 mg PO DAILY 10/27/22 10/27/22 10/27/22 History tablet (Vitamin C) bupropion HCl 150 mg tablet,12 hr 150 mg PO QAM 10/27/22 10/27/22 10/27/22 History sustained-release (Wellbutrin SR) ranolazine 500 mg tablet,extended 500 mg PO BEDTIME 10/27/22 10/27/22 10/26/22 History release,12 hr Allergies Allergy/AdvReac Type Severity Reaction Status Date / Time No Known Allergies Allergy Verified 06/02/22 09:42 Current Medications Generic Name Dose Route Start Last Admin Trade Name Freq PRN Reason Stop Dose Admin Amiodarone HCl 900 mg/ 518 mls @ 17.267 mls/hr 10/27/22 16:00 10/27/22 16:14 Dextrose/ IV Miscellaneous IV 0.5 mg/min Supplies CONT ONIEL 17.27 mls/hr Administration 0.5 MG/MIN PFSH Acute PFSH: Medical History Arthritis of left acromioclavicular joint CAD (coronary artery disease) of bypass graft Depression, major, in partial remission History of nonmelanoma skin cancer Hyperlipidemia Hypertension Impingement syndrome of left shoulder region [place] treated with BiPAP Restless leg syndrome Tendonitis of left rotator cuff Thoracic aneurysm without mention of rupture found on echo by video producer - dr. cassidy Type 2 diabetes mellitus Surgical History History of shoulder surgery left Hx of coronary artery bypass graft CAABG x 3 2015 Status post repair of hydrocele Family History Mother CAD (coronary artery disease) Diabetes Father Cancer prostate & lung CAD (coronary artery disease) Social History Smoking and tobacco status: former smoker Quit status (tobacco): has quit using tobacco Year quit tobacco: 2015 Former quit date comment: 30 pack year Household members: spouse Marital status: Vitals/I&O/Wt Last Vital Signs Temp 97.5 F L 10/27/22 13:08 Pulse 73 10/27/22 17:00 Resp 13 10/27/22 17:00 BP 128/80 10/27/22 17:00 Pulse Ox 97 10/27/22 17:00 O2 Del Method 10/27/22 13:08 Weight last 48 hrs Weight 250 lb Physical Exam Narrative: GENERAL: Patient is alert, awake and oriented x3. [] NECK: No jugular vein distension. [] HEENT: No cyanosis. No icterus. No pallor. [] HEART: Regular S1 and S2. No murmur, rub or gallop. [] LUNGS: Clear to auscultate bilaterally. [] ABDOMEN: Soft CENTRAL NERVOUS SYSTEM: Grossly nonfocal. [] EXTREMITIES: Lower extremities with 1+ edema bilaterally. Pulses palpable in the lower extremities, both dorsalis pedis and posterior tibial. [] Data 10/27/22 14:30 10/27/22 14:30 A&P Assessment and plan (1) Unstable angina: (2) Ventricular tachycardia: (3) Chest pain: (4) CAD (coronary artery disease) of bypass graft: (5) Hyperlipidemia: (6) Multiple lung nodules: (7) Type 2 diabetes mellitus: Plan Patient has presented with typical chest pain symptoms and has significant CAD history. Also had nonsustained ventricular tachycardia episodes on telemetry. We will plan on coronary angiogram with possible percutaneous coronary interve ntion. Risks and benefits of the procedure have been discussed with the patient. N.p.o. past midnight. Continue aspirin. Patient was started on amiodarone drip in the emergency room. Continue for now. Echocardiogram ordered Thank you for involving us with care of this patient. We will continue to follow. Please call with questions. Consult Attestations Medical Necessity Statement: Care expected to cross 2midnights. Coding Level of Care Code Acute Code for Chg Fwd Diagnoses Unstable angina I20.0 Ventricular tachycardia I47.20 Chest pain R07.9 CAD (coronary artery disease) of bypass graft I25.810 Hyperlipidemia E78.5 Multiple lung nodules R91.8 Type 2 diabetes mellitus E11.9
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
--- NOTE | 2022-10-27 20:12 | ECG_ITS ---
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 Measurements Intervals [place] Rate: 70 P: 13 MT: 161 QRS: -37 QRSD: 102 T: 51 QT: 396 QTc: 429 Interpretive Statements SINUS RHYTHM LEFT AXIS DEVIATION [QRS AXIS < -30] MODERATE T-WAVE ABNORMALITY, CONSIDER ANTERIOR ISCHEMIA [-0.1+ mV T-WAVE IN V3/V4] Compared to ECG 10/27/2022 16:09:02 No significant changes Electronically Signed On 10-27-2022 21:03:16 DYNAMOMETER TESTER by Mali Quintana M.D. [id number]
[2022-10-27] MEDS: iohexol 350 mg/mL 500 mL Btl (per mL) IV (20:29)
[2022-10-27 20:44] LABS: D Dimer <= 0.27 ug/mIFEU (0-0.59)
[2022-10-27 20:59] LABS: Alcohol Level < 10 mg/dL (0-10)
[2022-10-27] MEDS: sodium chloride 0.9% 1,000 ML 75 ML IV (21:12)
[2022-10-27] MEDS: ranolazine (12HR) 500 mg Tablet PO (21:12)
[2022-10-27] MEDS: enoxaparin 40 mg/0.4 mL Syringe SUBCUT (21:12)
[2022-10-27 22:08] LABS: Troponin 5 6HR 6.06 ng/L (0-15)
[2022-10-27 22:22] LABS: Troponin 5 6HR Delta 0.06 ng/L (0-12)
[2022-10-28] VITALS (20 sets, daily range): BP systolic 94–143; BP diastolic 59–101; PULSE 56–90; RESP 12–20; TEMP 36.4–36.6; O2SAT 93–99
[2022-10-28] MEDS: temazepam 15 mg Capsule PO (00:26)
[2022-10-28 03:52] LABS: Basophils # 0.1 10^3/uL (0.0-0.1); Basophils % 0.9 %; Eosinophils # 0.2 10^3/uL (0.0-0.8); Eosinophils % 3.2 %; Hematocrit 40.2 % (42.0-52.0); Lymphocytes # 1.6 10^3/uL (0.8-4.8); Lymphocytes % 27.9 %; Mean Corpuscular HGB Conc 32.3 g/dL (30.0-36.0); Mean Corpuscular Volume 92.6 fl (80-94); Mean Platelet Volume 9.3 fL (7.4-10.4); Monocytes # 0.5 10^3/uL (0.2-0.9); Monocytes % 8.3 %; Neutrophils # 3.37 10^3/uL (1.8-7.7); Neutrophils % 59.2 %; Nucleated Red Blood Cells % 0 %; Platelet Count 195 10^3/cmm (130-400); Red Blood Count 4.34 10^6/uL (4.1-5.3); Red Cell Distribution Width 13.3 % (12.1-15.1); White Blood Count 5.7 10^3/uL (4.0-10.0)
[2022-10-28 04:26] LABS: Blood Urea Nitrogen 9 mg/dL (8-23); Calcium 9.1 mg/dL (8.5-10.5); Carbon Dioxide 26 mmol/L (22-29); Chloride 104 mmol/L (98-107); Creatinine Clr Calc Pharmacy 103.8741; Glomerular Filtration Rate 84.4 mL/min (90-130); Glucose 116 mg/dL (65-115); Osmolality Calculated 290 mOsm/kg (285-295); Sodium 140 mmol/L (136-145)
--- NOTE | 2022-10-28 07:41 | XACV_ITS ---
Exam Room: [facility] Ht: 183 cm Wt: 111 kg BSA: 2.40 m2 Gender: Male : 1955 Any Known Allergies: No known allergies Exam Priority: Routine Procedure(s): Procedure Description: Diagnostic procedure Procedure Description: Venous Graft Catheterization Procedure Description: ROSE Graft Catheterization Procedure Description: Coronary Angiography Diagnostic Cath Status: Urgent Diagnostic Findings * INDICATION: Unstable angina/ VT. * Left main artery is patent. Has mild to moderate distal disease. Left circumflex artery: Patent LAD: Proximal total occlusion. Has competitive flow from ROSE. RCA: Has severe mid vessel 90% stenosis. SVG to diagonal artery: Slow flow. Patent SVG to RCA: Ectatic, very slow flow however is patent. ROSE to LAD: Patent. * Coronary angiography shows right dominance. Conclusions 1. Left main artery is patent. Has mild to moderate distal disease. Left circumflex artery: Patent LAD: Proximal total occlusion. Has competitive flow from ROSE. RCA: Has severe mid vessel 90% stenosis. SVG to diagonal artery: Slow flow. Patent SVG to RCA: Ectatic, very slow flow however is patent. ROSE to LAD: Patent. 2. Patient has prior CABG. Recommendations * Aggressive risk factor modification. * Outpatient cardiology follow-up in 4 weeks. Diagnostic RX Recommendation: medical therapy and/or counseling Pressures Phase:Rest AO : 107 / 75 ( 81 ) @ 8:29:00 AM Clinical Evaluation EBL: 5mL-10mL Procedural Details Procedure Consent Obtained. Admit Source: In Patient. Pre-Procedure Time Out. Identified patient by full name and date of as verbalized by the patient/guarantor. Does the consent match the physician's order: Yes. Accurate & Complete Informed Consent: Yes. Inpatient/Outpatient History & Physical on Chart: Yes. If H&P is completed, is and addenduem needed: No; If yes, is the addendum complete: N/A. Visualize and Verify Site with Patient/Guarantor: N/A. Relevant Radiology Images available: N/A. The risks, benefits, and alternatives of sedation and/or procedure were discussed by physician. The patient agrees to continue. Procedure started. [facility] Clinical Fraility Score: 3: Managing Well. 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 Chest Pain Symptom Assessment: Typical Angina Symptoms. Correct patient, site and procedure confirmed by cath team. Current diagnosis: Chest Pain, ventricular tachycardia. PERRLA. Strong, equal hand accounting auditor bilaterally. Lungs clear x 5 lobes. IV Site on Arrival: 18 gauge in the right anticubital. IV Site on Arrival: 20 gauge in the left hand. IV Fluids: 0.9% NaCl at KVO. 800 mL infused prior to oil field laborer. Oxygen started at 2liters/min via nasal canula. Pre Procedural Pulses: bilateral dorsalis pedis was 2+. Pre Procedural Pulses: bilateral posterior tibial was 2+. bilateral groins was prepped with chloroprep then draped in the usual sterile fashion. Baseline sample Acquired. HR: 63 BPM. Physician notified. Physician arrived. Physician scrubbed in. Immediate Pre-Procedure Time Out. Correct Patient: Yes; Correct Procedure: Yes; Correct Site: Yes; Correct Patient Position: Yes; Correct Supplies: Yes; Dried Flammable Prep: Yes; Blood Products Available: No;. Lidocaine 1% infiltrated to the right groin. An attempt to gain access to the right femoral artery was unsuccessful. Manual pressure was held as needed to stop the bleeding. Ultrasound obtained to assist with arterial access. Arterial access obtained with micropuncture set. A 5 chilean JL4 catheter in over wire. Multiple views taken of left coronary artery. Catheter removed over the standard wire. A 5 chilean JR4 catheter in over wire. Multiple views taken of right coronary artery. SVG's to RCA visualized and patent. SVG's to Diaganol visualized and patent. Catheter redirected to left subclavian. Catheter removed over the exchange wire. A 5 chilean IM catheter in over exchange wire. ROSE to LAD visualized. Catheter removed over the exchange wire. A Right femoral angiogram was performed to determine safe placement of closure device. Post Procedure: Pulses reassessed and unchanged. PERRLA. Strong, equal hand accounting auditor bilaterally. No VTE prophylaxis required. Medication's Wasted: Heparin = 1000 units. Total IV fluids: 50 mL. Patient's family updated by Dr. Millard. Post-op diagnosis: Patent Bypass grafts. Complications: None. Estimated blood loss: 5mL-10mL. Responsiveness - Normal response to verbal stimuli; alert and oriented, PERRLA. Airway - Unaffected, no intervention required; spontaneous ventilation. Circulation: W/N/L, pulses unchanged. Nausea/Vomiting: N/A. Physician scrubbed out. A Manual Compression was successful obtaining hemostatsis at the Right Femoral artery insertion site. Procedure completed. Patient transferred by bed to ICU. Vital chart was stopped. Access Site Site: Right Femoral artery Sheath Size: 6 Fr Hemostasis Method: Manual Compression Hemostasis Success: Successful Procedure Medications Start: 8:05 AM Stop: 8:05 AM Medication: Versed Amount: 1 mg Route: I.V. Start: 8:05 AM Stop: 8:05 AM Medication: Fentanyl Amount: 50 mcg Route: I.V. Start: 8:11 AM Stop: 8:11 AM Medication: Versed Amount: 1 mg Route: I.V. Start: 8:19 AM Stop: 8:19 AM Medication: Versed Amount: 1 mg Route: I.V. Start: 8:19 AM Stop: 8:19 AM Medication: Fentanyl Amount: 25 mcg Route: I.V. Start: 8:27 AM Stop: 8:27 AM Medication: Versed Amount: 1 mg Route: I.V. Start: 8:40 AM Stop: 8:40 AM Medication: Fentanyl Amount: 25 mcg Route: I.V. I, the attending physician, have reviewed and verified all procedure medications. Yes, all medications given per verbal order History/Risk Factors Hypertension: Yes Dyslipidemia: Yes Peripheral Arterial Disease (PAD): No Myocardial Infarction ([place]): No Obesity: No Renal Disease: No Tobacco Use: Former Prior Interventions PCI: No CABG: Yes Valve Surgery: No Report Signatures Finalized by Gabriel Millard MD on 11/10/2022 05:07 PM
--- NOTE | 2022-10-28 07:59 | W.PM.OPSUD ---
Surgery/Procedure H&P Update DATE OF PROCEDURE: October 28, 2022 DATE H&P PERFORMED: 10/27/19 H&P UPDATE INFORMATION: I have reviewed H&P completed within last 30 days, I have examined patient prior to procedure and No changes to prior documentation PREOP DIAGNOSIS: Worsening angina/ Non-sustained ventricular tachycardia PRIMARY INDICATION FOR PROCEDURE: Worsening angina/ Non-sustained ventricular tachycardia PLANNED PROCEDURE: Left heart cath with possible percutaneous coronary intervention PATIENT REASSESSED PRIOR TO SEDATION, WITH NO CHANGE NOTED: Yes PHYSICAL EXAM: alert, oriented x 3, clear to auscultation bilaterally and regular rate & rhythm AIRWAY EVAL/ANESTHESIA PLAN: normal airway, ASA III, Local Anesthesia, Risks, benefits & alternatives of sedation and/or procedure discussed and Patient agrees to continue as planned
--- NOTE | 2022-10-28 08:12 | PC.NURSE ---
To Senior Tax Accountant at 0755, AAOx4, 0/10 pain, NSR, VSS, at bedside.
[2022-10-28] MEDS: sodium chloride 0.9% 1,000 ML 75 ML IV (09:29)
--- NOTE | 2022-10-28 09:36 | PM.PN ---
Subjective Subjective: Patient is chest pain-free. No more arrhythmias. He underwent coronary angiogram that demonstrated patent ROSE to LAD, patent [place] left circumflex artery.Patent but ectatic SVG to RCA with slow flow. [place] RCA has severe, calcified mid 90% stenosis. Patent SVG to diagonal artery however is not supplying a large area and has slow flow. Vitals/I&O/Wt Last Vital Signs Temp 97.6 F 10/28/22 04:00 Pulse 62 10/28/22 09:17 Resp 14 10/28/22 08:00 BP 143/101 10/28/22 08:00 Pulse Ox 97 10/28/22 08:00 O2 Del Method 10/28/22 09:17 10/27/22 10/28/22 10/28/22 22:59 06:59 14:59 Intake Total 360 / 360 240 / 600 270.851 / 270.851 Output Total 1525 / 1525 Balance 360 / 360 -1285 / -925 270.851 / 270.851 Weight last 48 hrs Weight 244 lb 11.41 oz Weight 250 lb Physical Exam Narrative: GENERAL: Patient is alert, awake and oriented x3. [] NECK: No jugular vein distension. [] HEENT: No cyanosis. No icterus. No pallor. [] HEART: Regular S1 and S2. No murmur, rub or gallop. [] LUNGS: Clear to auscultate bilaterally. [] ABDOMEN: Soft CENTRAL NERVOUS SYSTEM: Grossly nonfocal. [] EXTREMITIES: Lower extremities with no edema bilaterally. Pulses palpable in the lower extremities, both dorsalis pedis and posterior tibial. [] Data 10/28/22 03:14 10/28/22 03:14 A&P Assessment and plan (1) Unstable angina: (2) Ventricular tachycardia: (3) Chest pain: (4) CAD (coronary artery disease) of bypass graft: (5) Hyperlipidemia: (6) Multiple lung nodules: (7) Type 2 diabetes mellitus: Plan Patient underwent coronary angiogram with above-mentioned coronary anatomy. SVG grafts ectatic with slow flow however still patent. No intervention indicated at this time. Given episodes of nonsustained VT, patient will benefit from outpatient event monitor to assess need for long-term antiarrhythmic therapy. ECHO shows normal LV systolic function. Can continue amiodarone as outpatient for now. Based on event monitor results, can be discontinued. Ventricular tachycardia episodes were nonsustained and brief. Since starting amiodarone no more episode. Thank you for involving us with care of this patient. Patient can be discharged home later. Please call with questions. Attestations Medical Necessity Statement*: Care expected to cross 2 midnights. Coding Level of Care Code Acute Code for [facility] Fwd Diagnoses Unstable angina I20.0 Ventricular tachycardia I47.20 Chest pain R07.9 CAD (coronary artery disease) of bypass graft I25.810 Hyperlipidemia E78.5 Multiple lung nodules R91.8 Type 2 diabetes mellitus E11.9
[2022-10-28] MEDS: folic acid 1 mg Tablet PO (09:37)
[2022-10-28] MEDS: aspirin 81 mg EC Tablet PO (09:37)
[2022-10-28] MEDS: pantoprazole DR 40 mg Tablet PO (09:37)
[2022-10-28] MEDS: sertraline 100 mg Tablet 150 MG PO (09:37)
[2022-10-28] MEDS: atorvastatin 40 mg Tablet 80 MG PO (09:38)
[2022-10-28] MEDS: magnesium oxide 400 mg tablet PO (09:38)
[2022-10-28] MEDS: isosorbide mononitrate 20 mg Tablet 120 MG PO (09:39)
--- NOTE | 2022-10-28 09:53 | PC.CHAP ---
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 visit [] Patient/Family/Request visit [] Outpatient visit [] Follow-up visit [] Physician referral [] Code/Alert [x] Routine visit [] Staff referral [] Actively dying [] Patient sleeping [] Family support [] [] Out of room [] Palliative care [] [x] Receiving care in room [] Pre-surgical visit [] Trauma [] Long length of stay [x] ICU visit [] Other: Relational/Emotional Strength [] Patient feels connected with others/family/visitors/staff [] Distress [] Loneliness/isolation [] Abandonment Spirituality of Patient [] Person of Erica [] Attends Druze of their Erica [] Believes in Prayer [] Reads Bible or Alevism materials [] There are Spiritual issues to be addressed Bill Peddler Interventions [x] Prayer [] Active listening [] Non-anxious presence [] Spiritual/emotional support [] Crisis/trauma care [] Spiritual counseling [] Bereavement support [] Provided bereavement packet [] Provided Bible/devotional materials [] Provided toy/stuffed animal, coloring book to patient or family member [] Provided Communion [] Anointing/Foster [] Salvation [x] Completed spiritual assessment [] Other: Impact on Illness or Injury [] Angry [] Fearful [] Anxious [] Often cries [] Exhaustion [] Unable to work [] Unable to attend roman catholic [] Unable to walk/stand [] Unable to read [] Unable to drive [] Unable to eat/drink [] Unable to sleep [] Unable to be with family [] Patient intubated [] Other: Summary Time spent with patient
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
--- NOTE | 2022-10-28 16:10 | PC.NURSE ---
Discharge instructions given to patient and family, prescriptions delivered to patient, IVs removed, VSS, no chest pain, no SOB, no N/V. Patient and belongings wheeled to private vehicle, driven by .
== END 2022-10-28 16:15 | disposition home or self-care (01) | DRG 287 ==
LOC: ER 17:14 → ICU 17:42
PROVIDERS: Internal Medicine; Admitting Provider Internal Medicine; Emergency Provider Family Medicine; PCP Family Medicine; Visit Provider Internal Medicine
PROC: B2111ZZ Fluoroscopy of Multiple Coronary Arteries using Low Osmolar Contrast (ICD-10-PCS; principal; 2022-10-28 07:55)
DX: I47.20 Ventricular tachycardia, unspecified (principal); I25.110 Atherosclerotic heart disease of native coronary artery with unstable angina pectoris; I25.700 Atherosclerosis of coronary artery bypass graft(s), unspecified, with unstable angina pectoris; E78.5 Hyperlipidemia, unspecified; R91.8 Other nonspecific abnormal finding of lung field; E11.9 Type 2 diabetes mellitus without complications; I10 Essential (primary) hypertension; G47.33 Obstructive sleep apnea (adult) (pediatric); Z95.1 Presence of aortocoronary bypass graft; Z87.891 Personal history of nicotine dependence; Z79.82 Long term (current) use of aspirin; Z79.85 Long-term (current) use of injectable non-insulin antidiabetic drugs
CPT/HCPCS: 36415; 36416; 71045; 71275; 80048; 80053; 80307; 82962; 84484; 85025; 85378; 93005; 93306; 93455; 96372; 99152; 99153; 99285; C1769; C1887; C1894; J0282; J1644; J1650; J2250; J3010; J3411; J7030; J7060; Q9967

== ENCOUNTER 2022-10-31 12:00 | Outpatient (CLI) | payer MEDICARE, SELFPAY ==
[2022-10-31] MEDS: iohexol 350 mg/mL 500 mL Btl (per mL) IV ×2 (12:59→13:01)
--- NOTE | 2022-10-31 13:30 | CTR_ITS ---
PROCEDURE INFORMATION: Exam: CT Chest With Contrast; Diagnostic Exam date and time: 10/31/2022 1:16 PM Age: 67 years old Clinical indication: Abnormal findings; Abnormal radiologic finding of the abdomen; Radiologic exam and body structure: Lung nodules; Abnormal radiologic exam of lung or chest; Prior surgery; Surgery type: Cabg; Patient HX: HX thoracic aneurysm, recent icu stay with SOB; Additional info: Multiple nodules on ldct chest, f/u exams TECHNIQUE: Imaging protocol: Diagnostic computed tomography of the chest with contrast. Radiation optimization: All CT scans at this facility use at least one of these dose optimization techniques: automated exposure control; mA and/or kV adjustment per patient size (includes targeted exams where dose is matched to clinical indication); or iterative reconstruction. Contrast material: OMNI 350; Contrast volume: 100 ml; Contrast route: INTRAVENOUS (IV); Other protocol: This patient has received 2 known CTs and 0 known cardiac nuclear medicine studies in the 12 months prior to the current study. COMPARISON: CT lung screening [id number] 09/29/2022 8:38 AM RADIATION DOSE METRICS: Total DLP (mGy-cm): 1468.08 FINDINGS: Lungs: There are multiple small circumscribed pulmonary nodules measuring up to 6 mm again noted not appreciably changed from most recent exam. There are no new nodules detected. Lung arias are otherwise aerated and clear. Pleural spaces: Unremarkable. No pneumothorax. No pleural effusion. Heart: Heart is borderline enlarged. Moderate calcification of coronary arteries. No significant pericardial effusion. Lymph nodes: Unremarkable. No enlarged lymph nodes. Vasculature: Unremarkable. No aortic aneurysm. Bones/joints: Evidence of prior median sternotomy. Soft tissues: Unremarkable. PROCEDURE INFORMATION: Exam: CT Abdomen And Pelvis With Contrast Exam date and time: 10/31/2022 1:16 PM Age: 67 years old Clinical indication: Abnormal findings; Abnormal radiologic finding of the abdomen; Radiologic exam and body structure: Lung nodules; Abnormal radiologic exam of lung or chest; Prior surgery; Surgery type: Cabg; Patient HX: HX thoracic aneurysm, recent icu stay with SOB; Additional info: Multiple nodules on ldct chest, f/u exams TECHNIQUE: Imaging protocol: Computed tomography of the abdomen and pelvis with contrast. Radiation optimization: All CT scans at this facility use at least one of these dose optimization techniques: automated exposure control; mA and/or kV adjustment per patient size (includes targeted exams where dose is matched to clinical indication); or iterative reconstruction. Contrast material: OMNI 350; Contrast volume: 100 ml; Contrast route: INTRAVENOUS (IV); Other protocol: This patient has received 2 known CTs and 0 known cardiac nuclear medicine studies in the 12 months prior to the current study. COMPARISON: CT lung screening [id number] 09/29/2022 8:38 AM RADIATION DOSE METRICS: Total DLP (mGy-cm): 1468.08 FINDINGS: Lungs: Lung bases are clear. Liver: Diffuse fatty infiltration of the liver with 2 small benign-appearing liver cysts. Gallbladder and bile ducts: Normal. No calcified stones. No ductal dilation. Pancreas: TheUnremarkable. Main pancreatic duct is not significantly dilated. Spleen: Normal. No splenomegaly. Adrenal glands: Normal. No mass. 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 Stomach and bowel: Moderate degree of retained stool throughout the large bowel. Scattered diverticuli. No evidence of acute diverticulitis. Appendix: No evidence of appendicitis. Intraperitoneal space: Unremarkable. No free air. No significant fluid collection. Vasculature: Unremarkable. No abdominal aortic aneurysm. Lymph nodes: Unremarkable. No enlarged lymph nodes. Urinary bladder: Unremarkable as visualized. Reproductive: Unremarkable as visualized. Bones/joints: Unremarkable. No acute fracture. Soft tissues: Unremarkable. CT/CT chest abdpel w/*[id number] IMPRESSION: Multiple small pulmonary nodules measuring up to 6 mm stable from previous studies, nonspecific. Recommend repeat CT chest in 3 months for continued surveillance. IMPRESSION: 1. No acute findings within the abdomen or pelvis. 2. Fatty infiltration of liver with small benign liver cysts. 3. Congenital horseshoe kidney. 4. Moderate degree of retained stool throughout the large bowel. Please correlate for constipation.
== END 2022-10-31 12:01 | disposition home or self-care (01) ==
LOC: RAD 12:03
PROVIDERS: PCP Family Medicine; Visit Provider Family Medicine
DX: R91.8 Other nonspecific abnormal finding of lung field (principal)
CPT/HCPCS: 71260; 74177; Q9967

== ENCOUNTER → 2022-12-26 08:08 | Outpatient (BNVA) | payer MEDICARE, SELFPAY | PROVIDERS: PCP Family Medicine; Visit Provider Family Medicine | DX: E11.9 Type 2 diabetes mellitus without complications (principal); F32.4 Major depressive disorder, single episode, in partial remission; Z79.899 Other long term (current) drug therapy | CPT/HCPCS: 80061; 83036; 84439; 84443 ==

== ENCOUNTER → 2023-03-30 08:52 | Outpatient (BNVA) | payer MEDICARE, SELFPAY | PROVIDERS: PCP Family Medicine; Visit Provider Family Medicine | DX: E03.8 Other specified hypothyroidism (principal); E11.9 Type 2 diabetes mellitus without complications; E78.5 Hyperlipidemia, unspecified; D64.9 Anemia, unspecified; G25.81 Restless legs syndrome; I25.810 Atherosclerosis of coronary artery bypass graft(s) without angina pectoris; F32.4 Major depressive disorder, single episode, in partial remission; R91.8 Other nonspecific abnormal finding of lung field | CPT/HCPCS: 80061; 82043; 82728; 83036; 84439; 84443; 84481 ==

== ENCOUNTER → 2023-08-07 13:06 | Outpatient (BNVA) | payer MEDICARE, SELFPAY | PROVIDERS: PCP Family Medicine; Visit Provider Family Medicine | DX: E03.8 Other specified hypothyroidism (principal); E78.5 Hyperlipidemia, unspecified; E11.9 Type 2 diabetes mellitus without complications; R91.8 Other nonspecific abnormal finding of lung field; Z79.899 Other long term (current) drug therapy | CPT/HCPCS: 80053; 80061; 83036; 84439; 84443; 84481 ==

== ENCOUNTER 2023-09-08 14:02 | Outpatient (CLI) | payer MEDICARE, SELFPAY ==
--- NOTE | 2023-09-08 14:30 | CT_ITS ---
WS: [id number] CT scan of the chest without IV contrast, additional two-dimensional coronal and sagittal reconstruct ion was performed. 09/08/2023 Clinical Data: f/u lung nodules Comparison: CT chest, 10/31/2022 DLP: 631.[address] scans at [facility] use at least one of these dose optimization techniques: automated e xposure control; mA and/or kV adjustment per patient size (includes targeted exams where dose is matc hed to clinical indication); or iterative reconstruction. Findings: There are numerous small nodules in both lungs are unchanged in size or number. No masses or effusions are seen. The heart size is normal with no pericardial effusion. There is will nary artery calcification. The pulmonary arterial system and thoracic aorta demonstrate no abnormalit ies or dilatations. No pneumonia or pneumothorax is seen. The pulmonary vascularity is not increased. The trachea bifurcates normally into the bronchi, and there is no axillary or significant mediastina l adenopathy. Midline sternotomy sutures are present. The upper abdomen shows no change from before. Impression: No change in multiple small nodules and recommend CT scan of the chest in 18 months.
== END 2023-09-08 14:03 | disposition home or self-care (01) ==
LOC: RAD 14:02
PROVIDERS: PCP Family Medicine; Visit Provider Family Medicine
DX: R91.8 Other nonspecific abnormal finding of lung field (principal)
CPT/HCPCS: 71250